=== PATIENT | female | born 1980 | race Caucasian/White ===

== ENCOUNTER 2018-03-07 09:58 | Day surgery (SDC) | END 2018-03-07 16:12 | disposition home or self-care (01) ==

== ENCOUNTER 2018-11-17 11:01 | Inpatient (IN) | payer MEDICAID ==
[~2018-11-17] VITALS: Ht 162.6 cm; Wt 102.5 kg
[2018-11-17] MEDS ORDERED: PREN-93 PO (11:13)
[2018-11-17 11:14] VITALS: BP 118/74; PULSE 81; RESP 18; Ht 162.6 cm; Wt 102.5 kg
--- NOTE | 2018-11-17 13:14 | HP ---
Date/Time of Note Date/Time of Note DATE: 11/17/18 TIME: 13:11 OB - History Hx of Present Chief Complaint: uncontrolled DM Estimated Due Date: Dec 27, 2018 : 2 Para: 0 Spontaneous : 1 Therapeutic : 0 Care: Other (late care) Obstetrical Complications: Gestational Diabetes Medical Complications: None Past Family/Social History * Past Medical, Surgical, Family and Obstetric Histories reviewed from chart. OB Admission Exam Vital Signs Vital Signs Vital Signs Date Temp Pulse Resp B/P (MAP) Pulse Ox O2 O2 Flow FiO2 Time Delivery Rate 11/17/18 97.6 81 18 118/74 Room Air 11:14 (89) Physical Exam HEENT: WNL Heart: Rhythm Normal Lungs: Clear, Equal Abdomen: WNL Extremities: Normal Reflexes: Normal Heart Rate: 120's Accelerations: Accelerations Present Decelerations: No Decelerations Varibility: Moderate Last 72 hourBlood Glucose Bedside Glucose - 72 Hours Test 11/17/18 11:29 Bedside Glucose 98 mg/dL (70-220) OB Assessment/Plan Reason for admission: other Other Assessment: uncontrolled DM Plan: Other Other plan: Admit Perinatology consult ADA diet AccuChecks Diabetic teaching MANOJ SEARS MD Nov 17, 2018 13:14
[2018-11-17] MEDS: ACCU-CHEK XX SCH ×2 (13:30→20:39)
--- NOTE | 2018-11-17 14:08 | TRIAGE ---
OB Triage Datetime Report Generated by CPN: 11/17/2018 14:08 Datetime: 11/17/2018 13:00 Labor Evaluation Frequency: 0 Monitor Mode: External Pattern: Normal: <= 5 Contractions in 10 Minutes Resting Tone [place]: Relaxed Heart Rate FHR Baseline Rate: 140 Monitor Mode: External US Variability: Moderate 6-25 bpm Accelerations: 15X15 Decelerations: None Category: Category I Datetime: 11/17/2018 11:51 Comments: U/S TECH AT BEDSIDE Datetime: 11/17/2018 11:50 Labor Evaluation Frequency: 0 Monitor Mode: External Pattern: Normal: <= 5 Contractions in 10 Minutes Resting Tone [place]: Relaxed Heart Rate FHR Baseline Rate: 140 Monitor Mode: External US Variability: Moderate 6-25 bpm Accelerations: 15X15 Decelerations: None Category: Category I Datetime: 11/17/2018 11:10 EGA: 34.2 Datetime: 11/17/2018 11:08 EGA: 27.5 Datetime: 11/17/2018 11:07 Time of Arrival: 11/17/2018 10:50 Arrived By: Ambulatory Arrived From: Dr. Goodman Chief Complaint: SENT IN [facility] FOR EFW, BPP, AND ACCUCHECK. PT JUST FOUND OUT SHE WAS 5 DAYS AGO AND IS UNSURE OF DATES Movement: Present Contractions: Denies/Absent Rupture of Membranes: Denies Vaginal Bleeding: None Vaginal Discharge: Denies Recent Sexual Intercouse: Denies Abdominal Trauma: Not Applicable Patient Complaints: None Time Provider Notified: 11/17/2018 10:50 Provider Notified: DELSHAD Initial Plan: NST, U/S, ACCUCHECK Datetime: 11/17/2018 11:06 Stage of : OB Triage Maternal Assessment Level of Consciousness: Fully Conscious DTR's/Clonus: DTRs 2+; No Clonus Headache: Denies Headache: Denies Blurred Vision: No Respiratory Effort: Unlabored; Regular Rhythm; Equal Expansion Nausea/Vomiting: Denies RUQ Epigastric Pain: Denies Facial Edema: None Temperature Route: Oral Fall Risk Assessment History of Falling: (0) No Secondary Diagnosis: (0) No Ambulatory Aid: (0) Bedrest/Nurse Assist IV Therapy: (0) No Gait: (0) Normal/Bedrest/Immobile Mental Status: (0) Oriented to Own Ability Fall Score: 0 Fall Risk Score Definition: No Risk: No action required Pain Assessment Pain Scale: 0 Pain Presence: None/Denies Pain Type: N/A
--- NOTE | 2018-11-17 17:50 | NUR ---
NUTRITION CONSULT: PATIENT , APROXIMATELY 34 WEEKS GESTATION. NO CARE RECEIVED R/T PATIENT NOT AWARE OF . HGBAIC 6.2, DIAGNOSED WITH PREDIABETES PER PATIENT. HAS RISK FACTORS FOR DIABETES, WITH BEING OBESE AND FATHER WITH DM2. PATIENT STATED FAMILIAR WITH DIET MANAGEMENT FOR DIABETES HAVING WORKED AN GLAZE WIPER. NUTRITION EDUCATION PROVIDED VERBAL AND WRITTEN. VERY MOTIVATED AND SUPPORTIVE. ANTICIPATE GOOD COMPLIANCE WITH DIET MANAGEMENT. AGREE WITH 2000 DEWEY CARB CONTROLLED DIET.
[2018-11-18] MEDS ORDERED: PRENATAL VITAMIN PO SCH (09:00)
[2018-11-18] MEDS: ACCU-CHEK XX SCH ×2 (10:48→10:55)
--- NOTE | 2018-11-18 13:31 | QN ---
Documentation Comment No complaint Afebrile VSS Strip Reactive Await Perinatology consult MANOJ SEARS MD Nov 18, 2018 13:31
--- NOTE | 2018-11-18 15:34 | PERINOTE ---
Date/Time of Note Date/Time of Note DATE: 11/18/18 TIME: 15:25 Assessment/Recommendations Other Assessments IUP 34+ weeks Newly diagnosed gestational diabetes, appears to be controllable with diet growth parameters are symmetrical, without evidence of accelerated abdominal growth. Recommendations: I would consider discharging this patient with no medication to check blood glucose fasting and postprandial. Would follow her in the perinatology clinic in 1-2 weeks, with management guided by blood glucose values. I discussed gestational diabetes and the possibility of developing non- diabetes in the future with the patient. OB Subjective Free Text/Dictaton Patient admitted for new diagnosis of gestational diabetes. Patient reports irregular menses. Had a SAB in early February,, no further menses. was not diagnosed until recently, dating is by US done on this admission. HD# 2 IUP @ 34W3D Complaints/Overnight events None Current Medications Current Medications Prenat Multivit/ Beltrami/Iron/Folic Ac () 1 tab DAILY PO Last a dministered on 11/18/18at 10:49; Admin Dose 1 TAB; Start 11/18/18 at 09:00 Diagnostic Test (Pha) (Accu-Chek) 1 ea FBSPP XX Last administered on 11/18/18at 10:55; Admin Dose 1 EA; Start 11/17/18 at 13:30 Past Medical History Medical History: no pertinent history Surgical History: no surgical history Para: 0 : 2 LMP (Females 10-50): OB Admission Exam Physical Exam Vitals: Vital Signs Date Temp Pulse Resp B/P (MAP) Pulse Ox O2 O2 Flow FiO2 Time Delivery Rate 11/17/18 97.6 81 18 118/74 Room Air 11:14 (89) HEENT: WNL Abdomen: WNL Last 72 hourBlood Glucose Bedside Glucose - 72 Hours Test 11/17/18 11:29 11/17/18 20:23 11/18/18 08:14 11/18/18 10:45 Bedside 98 113 95 104 Glucose mg/dL (70-220) mg/dL (70-220) mg/dL (70-220) mg/dL (70-220) Test 11/18/18 14:47 Bedside 130 Glucose mg/dL (70-220) Last 72 hours Lab Results CBC & BMP 11/17/18 15:26 Liver Function Test 11/17/18 15:26 Alanine Aminotransferase (ALT/SGPT) 23 Albumin 3.6 Alkaline Phosphatase 142 H Aspartate Amino Transf (AST/SGOT) 33 Direct Bilirubin 0.00 Total Protein 6.8 Hemoglobin A1C Test 11/17/18 15:26 Hemoglobin A1c 6.2 H Copies To: CC: MANOJ SEARS MD ; ROSENDO MANUEL MD Nov 18, 2018 15:34
--- NOTE | 2018-11-19 08:42 | RADRPT ---
Vent Rate: 75 bpm RR Interval: 0 msec DC Interval: 154 msec QRS Duration: 82 msec QT Interval: 378 msec QTC Interval: 422 msec P-R-T [place]: 59 - 54 - 51 degrees Normal sinus rhythm Normal ECG Electronically Signed By: Fan Connelly [id number]
--- NOTE | 2018-11-19 14:29 | DS ---
Date/Time of Note Date/Time of Note DATE: 11/19/18 TIME: 14:28 Obstetrical Discharge Record Final Diagnosis Final Diagnosis: not delivered Other Final Diagnosis Gestational DM Complications Gestational Diabetes Condition on Discharge Physical Assessment Voiding: Yes Bowel Movement: Yes Calf Tenderness: No Patient Condition: Stable MANOJ SEARS MD Nov 19, 2018 14:29
== END 2018-11-18 18:45 | disposition home or self-care (01) | DRG 833 ==
LOC: OBT 11:01 → L-D 11:06 → OBT 13:03 → PP1 15:05
PROVIDERS: ADMIT Obstetrics & Gynecology; ATTEND Obstetrics & Gynecology
PROC: 4A1HXCZ Monitoring of Products of Conception, Cardiac Rate, External Approach (ICD-10-PCS; principal; 2018-11-17)
DX: O24.410 Gestational diabetes mellitus in pregnancy, diet controlled (principal); Z3A.34 34 weeks gestation of pregnancy
CPT/HCPCS: 76815; 76818; 80053; 81003; 82962; 83036; 85025; 93005; G0463

== ENCOUNTER 2018-11-30 04:10 | Inpatient (IN) | payer MEDICAID ==
[~2018-11-30] VITALS: Ht 162.6 cm; Wt 101.6 kg
[~2018-11-30 04:10] MED LIST: PREN-93 PO
[2018-11-30 05:19] VITALS: Ht 162.6 cm; Wt 101.6 kg
[2018-11-30 05:20] VITALS: BP 117/68; RESP 18
[2018-11-30] MEDS ORDERED: LACTATED RINGER'S 1,000 ML IV PRN (05:41)
[2018-11-30] MEDS ORDERED: OXYTOCIN 30 UNITS/LR 500 ML IV PRN (06:00)
[2018-11-30] MEDS ORDERED: LIDOCAINE 1% (MPF) 30 ML INJ INJ PRN (06:00)
[2018-11-30] MEDS ORDERED: MISOPROSTOL 200 MCG TAB PR PRN (06:00)
[2018-11-30] MEDS ORDERED: METHYLERGONOVINE 0.2 MG INJ IM PRN (06:00)
[2018-11-30] MEDS ORDERED: BUTORPHANOL 2 MG INJ IV PRN (06:00)
[2018-11-30] MEDS ORDERED: IBUPROFEN 600 MG TAB PO PRN (06:00)
[2018-11-30] MEDS ORDERED: OXYTOCIN 30 UNITS/LR 500 ML IV SCH ×3 (06:00)
[2018-11-30] MEDS ORDERED: AMPICILLIN 2 GM/NS (PMX) 100 ML IV ONE (06:00)
[2018-11-30] MEDS ORDERED: BUTORPHANOL 1 MG INJ IV PRN (06:00)
[2018-11-30] MEDS ORDERED: CARBOPROST 250 MCG INJ IM PRN (06:00)
[2018-11-30] MEDS: LACTATED RINGER'S 1,000 ML IV SCH ×3 (07:00→21:41)
--- NOTE | 2018-11-30 07:10 | TRIAGE ---
OB Triage Datetime Report Generated by CPN: 11/30/2018 07:09 Datetime: 11/30/2018 06:08 Pain Assessment Pain Scale: 4 Pain Presence: Intermittent Pain Type: Cramping Pain Location: Abdomen Datetime: 11/30/2018 05:38 Stage of : OB Triage Datetime: 11/30/2018 05:33 Stage of : OB Triage Datetime: 11/30/2018 05:27 Stage of : OB Triage Datetime: 11/30/2018 05:15 Stage of : OB Triage Datetime: 11/30/2018 05:09 Stage of : OB Triage Vaginal Exam Dilatation (cms): 1.0 Exam By: ERIN, RN Datetime: 11/30/2018 05:06 Stage of : OB Triage Membrane Status: Ruptured Membranes Rupture Method: Spontaneous Amniotic Fluid Color: Clear Amniotic Fluid Amount: Small Pool: Positive Datetime: 11/30/2018 04:44 Stage of : Labor Maternal Assessment Level of Consciousness: Fully Conscious DTR's/Clonus: DTRs 2+ Headache: Denies Blurred Vision: No Respiratory Effort: Unlabored Breath Sounds, Left: Clear and Equal Breath Sounds, Right: Clear and Equal Nausea/Vomiting: Denies RUQ Epigastric Pain: Denies Facial Edema: None Interventions: Side to Side Heart Rate FHR Baseline Rate: 140 Monitor Mode: External US FHR Baseline Changes: No Baseline Change Variability: Moderate 6-25 bpm Accelerations: 10X10 Decelerations: None Pain Assessment Pain Scale: 4 Pain Presence: Intermittent Pain Type: Cramping; Dull; Ache Pain Location: Abdomen; Back Pain Goal: 2 Pain Relief Measures: Comfort Measures Membrane Status: Ruptured Membranes Rupture Method: Spontaneous Amniotic Fluid Color: Clear Amniotic Fluid Amount: Small Amniotic Fluid Odor: None Datetime: 11/18/2018 18:38 Time of Arrival: 11/30/2018 04:06 EGA: 36.1 Arrived By: Wheelchair Arrived From: Home Chief Complaint: LEAKING VAGINAL FLUID SINCE 2229 Movement: Present Contractions: Irregular Time Contractions Began: 11/30/2018 03:30 Rupture of Membranes: Ruptured Vaginal Bleeding: None Vaginal Discharge: Denies Recent Sexual Intercouse: Denies Abdominal Trauma: Not Applicable Patient Complaints: Contractions; Cramping Time Provider Notified: 11/30/2018 05:38 Provider Notified: HARMAN Initial Plan: OB ASSESSMENT, VSS, MONITOR FHR AND TOCO FOR POSSIBLE UTCS Datetime: 11/18/2018 18:34 Labor Evaluation Frequency: 0 Monitor Mode: External Resting Tone [place]: Relaxed Pain Presence: None/Denies Datetime: 11/18/2018 18:33 Comments: fetus very active, abd soft to palpation. pt denies pain or contractions. family here to take her home Datetime: 11/18/2018 18:10 Labor Evaluation Frequency: occasional Monitor Mode: External Quality: Mild Resting Tone [place]: Relaxed Contraction Comments: pt denies feeling contractions or pain Heart Rate FHR Baseline Rate: 130 Monitor Mode: External US FHR Baseline Changes: No Baseline Change Variability: Moderate 6-25 bpm Accelerations: 15X15 Decelerations: None Category: Category I Datetime: 11/18/2018 18:07 Pain Presence: None/Denies Datetime: 11/18/2018 17:46 Comments: monitoring before dschg Datetime: 11/18/2018 14:46 Bedside Blood Glucose: 130 Datetime: 11/18/2018 11:24 Labor Evaluation Frequency: 0 Monitor Mode: External Resting Tone [place]: Relaxed Heart Rate FHR Baseline Rate: 135 Monitor Mode: External US FHR Baseline Changes: No Baseline Change Variability: Moderate 6-25 bpm Accelerations: 15X15 Decelerations: None Category: Category I Datetime: 11/18/2018 10:44 Bedside Blood Glucose: 104 Datetime: 11/18/2018 08:54 Maternal Assessment Level of Consciousness: Fully Conscious DTR's/Clonus: DTRs 2+ Headache: Denies Blurred Vision: No Nausea/Vomiting: Denies RUQ Epigastric Pain: Denies Facial Edema: None Datetime: 11/18/2018 08:52 Assessment Type: Ongoing Assessment Maternal Assessment Level of Consciousness: Fully Conscious DTR's/Clonus: DTRs 2+; No Clonus Headache: Denies Blurred Vision: No Respiratory Effort: Unlabored; Regular Rhythm; Equal Expansion Breath Sounds, Left: Clear and Equal Breath Sounds, Right: Clear and Equal Nausea/Vomiting: Denies RUQ Epigastric Pain: Denies Facial Edema: None Fall Risk Assessment History of Falling: (0) No Secondary Diagnosis: (0) No Ambulatory Aid: (0) Bedrest/Nurse Assist IV Therapy: (0) No Gait: (0) Normal/Bedrest/Immobile Mental Status: (0) Oriented to Own Ability Fall Score: 0 Fall Risk Score Definition: No Risk: No action required Datetime: 11/18/2018 08:12 Bedside Blood Glucose: 95 Datetime: 11/18/2018 05:49 Maternal Assessment Level of Consciousness: Fully Conscious Headache: Denies Blurred Vision: No Temperature Route: Oral Pain Presence: None/Denies Datetime: 11/17/2018 23:32 Maternal Assessment Level of Consciousness: Fully Conscious Headache: Denies Blurred Vision: No Temperature Route: Oral Datetime: 11/17/2018 22:10 Labor Evaluation Frequency: 0 Monitor Mode: External Duration (sec)2399: denies Resting Tone [place]: Relaxed Contraction Comments: nst done. Heart Rate FHR Baseline Rate: 145 Monitor Mode: External US Variability: Moderate 6-25 bpm Accelerations: 15X15 Decelerations: None Category: Category I Comments: nst done. Pain Presence: None/Denies Datetime: 11/17/2018 21:27 Monitor Mode: External Contraction Comments: PLACED NST STARTED. Monitor Mode: External US Comments: PLACED NST STARTED. Datetime: 11/17/2018 19:32 Stage of : Antepartum Assessment Type: Ongoing Assessment Maternal Assessment Level of Consciousness: Fully Conscious DTR's/Clonus: DTRs 2+; No Clonus Headache: Denies Blurred Vision: No Respiratory Effort: Unlabored; Regular Rhythm; Equal Expansion Breath Sounds, Left: Clear and Equal Breath Sounds, Right: Clear and Equal Nausea/Vomiting: Denies RUQ Epigastric Pain: Denies Lower Extremities Edema: None Degree: None Upper Extremities Edema: None Degree: None Facial Edema: None Temperature Route: Oral Fall Risk Assessment History of Falling: (0) No Secondary Diagnosis: (0) No Ambulatory Aid: (0) Bedrest/Nurse Assist IV Therapy: (0) No Gait: (0) Normal/Bedrest/Immobile Mental Status: (0) Oriented to Own Ability Fall Score: 0 Fall Risk Score Definition: No Risk: No action required Pain Presence: None/Denies Datetime: 11/17/2018 18:36 Stage of : Antepartum Maternal Assessment Level of Consciousness: Fully Conscious Headache: Denies Nausea/Vomiting: Denies RUQ Epigastric Pain: Denies Resting Tone [place]: Relaxed Vaginal Bleeding: None Datetime: 11/17/2018 17:33 Stage of : Antepartum Maternal Assessment Level of Consciousness: Fully Conscious Headache: Denies Nausea/Vomiting: Denies RUQ Epigastric Pain: Denies Monitor Mode: Palpation Resting Tone [place]: Relaxed Comments: pt. acknowledges movement. nst q shift and done for this a.m. shift Membrane Status: Intact Vaginal Bleeding: None Datetime: 11/17/2018 16:49 Maternal Assessment Level of Consciousness: Fully Conscious Headache: Denies Blurred Vision: No Respiratory Effort: Unlabored Nausea/Vomiting: Denies RUQ Epigastric Pain: Denies Resting Tone [place]: Relaxed Pain Presence: None/Denies Datetime: 11/17/2018 11:10 EGA: 34.2 Datetime: 11/17/2018 11:08 EGA: 27.5 Datetime: 11/17/2018 11:06 Fall Score: 0 Fall Risk Score Definition: No Risk: No action required
[2018-11-30] MEDS ORDERED: DEXTROSE 5%-LR 1,000 ML IV SCH (10:30)
[2018-11-30] MEDS: AMPICILLIN 1 GM/NS (PMX) 50 ML IV SCH ×4 (12:10→22:00)
--- NOTE | 2018-11-30 16:40 | PREAC ---
Date/Time of Note Date/Time of Note DATE: 11/30/18 TIME: 16:38 Anesthesia Eval and Record Evaluation Time Pre-Procedure Interview DATE: 11/30/18 TIME: 16:38 Age 38 Sex female NPO: 8 hrs Preoperative diagnosis labor pain Planned procedure labor epidural Past Medical History Past Medical History: Includes GI: Morbid obesity Surgery & Anesthesia Issues Hx of difficult intubation Meds Anticoagulation: No Beta Carlos within 24 hr: No Reason Beta Carlos not given: Pt. not on B-Carlos Reported Medications Vit No.124/Iron/FA ( Vitamin Tablet) 1 Each Tablet, 1 EACH PO DAILY, TAB 11/17/18 Current Medications Lactated Ringer's 1,000 ml @ 125 mls/hr Q8H IV Last administered on 11/30/18at 07:00; Admin Dose 125 MLS/HR; Start 11/30/18 at 05:41 Ampicillin 50 ml @ 100 mls/hr Q4H IV Last administered on 11/30/18at 16:18; Admin Dose 100 MLS/HR; Start 11/30/18 at 10:00 Butorphanol Tartrate (Stadol) 1 mg Q2H PRN IV PAIN; Start 11/30/18 at 06:00 Butorphanol Tartrate (Stadol) 2 mg Q2H PRN IV PAIN Last administered on 11/30/18at 12:33; Admin Dose 2 MG; Start 11/30/18 at 06:00 Lidocaine (Xylocaine 1% (Mpf)) 30 ml ONCE PRN INJ EPISIOTOMY; Start 11/30/18 at 06:00 Oxytocin/Lactated Ringer's 500 ml @ 500 mls/hr ONCE POST IV ; Start 11/30/18 at 06:00 Oxytocin/Lactated Ringer's 500 ml @ 125 mls/hr POST IV ; Start 11/30/18 at 06:00 Ibuprofen (Motrin) 600 mg ONCE PRN PO PAIN LEVEL 1-5; Start 11/30/18 at 06:00 Lactated Ringer's 1,000 ml @ 2,000 mls/hr Q30M PRN IV ANESTHESIA Last ad ministered on 11/30/18at 16:16; Admin Dose 2,000 MLS/HR; Start 11/30/18 at 05:41 Oxytocin/Lactated Ringer's 500 ml @ 0 mls/hr ONCE PRN IV VAGINAL BLEEDING; Start 11/30/18 at 06:00 Methylergonovine Maleate (Methergine) 0.2 mg ONCE PRN IM VAGINAL BLEEDING; Start 11/30/18 at 06:00 Carboprost Tromethamine (Hemabate) 250 mcg ONCE PRN IM VAGINAL BLEEDING; Start 11/30/18 at 06:00 Misoprostol (Cytotec) 1,000 mcg ONCE PRN WA VAGINAL BLEEDING; Start 11/30/18 at 06:00 Oxytocin/Lactated Ringer's 500 ml @ 0 mls/hr FOR AUGMENTATION IV Last administered on 11/30/18at 10:36; Admin Dose 1 MLS/HR; Start 11/30/18 at 06:00 Dextrose/Lactated Ringer's 1,000 ml @ 125 mls/hr Q8H IV Last administered on 11/30/18at 10:36; Admin Dose 125 MLS/HR; Start 11/30/18 at 10:30 Meds reviewed: Yes Allergies Coded Allergies: No Known Allergies (Verified Allergy, Unknown, 11/17/18) Allergies Reviewed: Yes Labs/Studies Labs Reviewed: Reviewed by anesthesiologist Result Diagram: 11/30/18 0700 11/30/18 0700 Laboratory Tests 11/30/18 07:00 Blood Bank Test 11/30/18 07:00 Antibody Screen NEGATIVE Blood Type O POSITIVE Rh Immune Globulin Candidate NO test: Positive Pre-procedure Exam Last vitals Vital Signs Date Temp Pulse Resp B/P (MAP) Pulse Ox O2 O2 Flow FiO2 Time Delivery Rate 11/30/18 98.4 18 117/68 Room Air 05:20 (84) Airway: Adequate mouth opening, Adequate thyromental dist Mallampati: Mallampati III Teeth: Normal Lung: Normal Heart: Normal ASA Physical Status ASA physical status: 3 Emergency: None Planned Anesthetic Neuraxial: Epidural Planned Pain Management Epidural, Parenteral pain med, Other neuraxial med Pre-operative Attestations Prior to commencing anesthesia and surgery, the patient was re-evaluated, there was verification of: *The patient's identity *The results of appropriate recent lab work and preoperative vital signs *The above evaluation not changing prior to induction *Anesthetic plan, risk benefits, alternative and complications discussed with patient/family; questions answered; patient/family understands, accepts and wishes to proceed. MARY BETH ALCAZAR MD Nov 30, 2018 16:40
[2018-11-30] MEDS ORDERED: KETOROLAC 30 MG INJ IV PRN (17:00)
[2018-11-30] MEDS ORDERED: DIPHENHYDRAMINE 50 MG INJ IV PRN (17:00)
[2018-11-30] MEDS ORDERED: HYDROmorphONE 0.5 MG/0.5 ML SYG IV PRN ×2 (17:00)
[2018-11-30] MEDS ORDERED: NALOXONE (0.4 MG/ML) INJ IV PRN (17:00)
[2018-11-30] MEDS ORDERED: FENTAnyl 2MCG/ML-ROPIV 0.2% 100 ML BAG EPI SCH (17:00)
[2018-11-30] MEDS ORDERED: ZOLPIDEM 5 MG TAB PO PRN (17:00)
[2018-11-30] MEDS ORDERED: ONDANSETRON 4 MG INJ IV PRN (17:00)
--- NOTE | 2018-11-30 22:04 | HP ---
Date/Time of Note Date/Time of Note DATE: 11/30/18 TIME: 21:52 OB - History Hx of Present Free Text/Dictation 38y.o A1(sab) who had SAB in dec 2017 ist trimester who only discovered in the mid of october 2018 She had D&C for missed AB at 10w in dec 2017 ,was depressed without checking for even though she had no period. She had only x3 visit came in [facility] at 11/29/18 2230 no GBS status VE 1cm ruptured clear, EFM CAT I tracing uc2-4min in mod intensity admitted expectant management ,poss augmentation amicillin was initiated for unknown GBS status Estimated Due Date: Dec 27, 2018 : 2 Para: 0 Spontaneous : 1 Therapeutic : 0 Care: Limited Care Ultrasounds: Other Obstetrical Complications: Gestational Diabetes Medical Complications: None Past Family/Social History * Past Medical, Surgical, Family and Obstetric Histories reviewed from chart. Blood Type: O+ Rubella: immune RPR/VDRL: Negative GBS Status: Unknown HBsAG: Negative OB Admission Exam Vital Signs Vital Signs Vital Signs Date Temp Pulse Resp B/P (MAP) Pulse Ox O2 O2 Flow FiO2 Time Delivery Rate 11/30/18 98.4 18 117/68 Room Air 05:20 (84) Physical Exam HEENT: WNL Heart: Rhythm Normal Lungs: Clear, Equal Abdomen: WNL Extremities: Normal Reflexes: Normal Cervical Dilatation: 1cm Membranes: Ruptured Amniotic Fluid: Clear Heart Rate: 140's Accelerations: Accelerations Present Decelerations: No Decelerations Varibility: Moderate Contractions on Admission: < 5 Minutes Apart Intensity: Moderate Last 72 hourBlood Glucose Bedside Glucose - 72 Hours Test 11/30/18 08:56 11/30/18 13:28 11/30/18 17:44 Bedside Glucose 80 mg/dL (70-220) 107 mg/dL (70-220) 105 mg/dL (70-220) Last 72 hours Lab Results CBC & BMP 11/30/18 07:00 Liver Function Test 11/30/18 07:00 Alanine Aminotransferase (ALT/SGPT) 61 Albumin 3.9 Alkaline Phosphatase 194 H Aspartate Amino Transf (AST/SGOT) 57 H Direct Bilirubin 0.00 Total Protein 7.5 OB Assessment/Plan Reason for admission: rupture of membranes Other Assessment: IUP 36w1d with late entry with lat U/S Plan: Expectant Management, Other (pitocin augmentation) MANASA HAMMER MD Nov 30, 2018 22:03
--- NOTE | 2018-11-30 22:12 | LDN ---
Date/Time of Note Date/Time of Note DATE: 11/30/18 TIME: 22:08 Delivery Summary of female infant Weeks of Gestation 36w1d late entry Placenta Delivered: Spontaneously Meconium: none Episiotomy: No Perineal laceration: 1 Laceration repair: 000ch gut Estimated blood loss: 80 Sponge & Needle done & correct: Yes All needle counts correct: Yes Any foreign bodies felt in the: No Infant Delivery Information Sex Infant Sex: female Apgars 1 Minute: 8 5 Minute: 9 Suctioning Nose & mouth suctioned at raul: Yes Delee suction performed: No Umbilical Cord Umbilical cord with: 3 Vessels Cord presentations: no nuchal cord Cord Blood was obtained: Yes Mother & Baby Disposition Disposition placenta to pathology for 22hrs ruptured membrane, no clinical sg of infection Mom & Baby to Maternity; Good: Yes Mom transferred to: Other Baby to NICU: No () MANASA HAMMER MD Nov 30, 2018 22:12
[2018-11-30 23:40] VITALS: BP 100/58; PULSE 79; RESP 18
[2018-12-01] MEDS ORDERED: ZOLPIDEM 5 MG TAB PO PRN (00:30)
[2018-12-01] MEDS ORDERED: CARBOPROST 250 MCG INJ IM PRN (00:30)
[2018-12-01] MEDS ORDERED: BENZOCAINE 20% 56 ML SPRAY TOP PRN (00:30)
[2018-12-01] MEDS ORDERED: OXYTOCIN 30 UNITS/LR 500 ML IV PRN (00:30)
[2018-12-01] MEDS ORDERED: METHYLERGONOVINE 0.2 MG INJ IM PRN (00:30)
[2018-12-01] MEDS ORDERED: LANOLIN HPA 1 PKT TOP PRN (00:30)
[2018-12-01] MEDS ORDERED: OXYCODONE/ASPIRIN (4.88/325) TAB PO PRN ×2 (00:30)
[2018-12-01] MEDS ORDERED: MISOPROSTOL 200 MCG TAB PR PRN (00:30)
[2018-12-01] MEDS ORDERED: WITCH HAZEL/GLYCERIN PAD PR PRN (00:30)
[2018-12-01 04:10] VITALS: BP 110/55; PULSE 73; RESP 18
[2018-12-01 08:00] VITALS: BP 102/56; PULSE 75; RESP 17
[2018-12-01] MEDS: SENNA/DOCUSATE NA (8.6MG/50MG) TAB PO SCH ×2 (09:12→22:03)
[2018-12-01] MEDS: IBUPROFEN 600 MG TAB PO SCH ×3 (11:47→23:14)
[2018-12-01] MEDS ORDERED: INFLUENZA VIRUS VACCINE 0.5 ML (DISPENSING) IM* ONE (13:30)
[2018-12-01 15:30] VITALS: BP 91/51; PULSE 81; RESP 17
--- NOTE | 2018-12-01 17:28 | QN ---
Documentation Comment vss afebrile fundus firm lochia min calf neg A s/p PTB? PPROM?( late care) P discharge home in am MANASA HAMMER MD Dec 01, 2018 17:28
[2018-12-01 20:20] VITALS: BP 98/56; PULSE 65; RESP 18
[2018-12-02 04:00] VITALS: BP 96/54; PULSE 67; RESP 18
[2018-12-02] MEDS: IBUPROFEN 600 MG TAB PO SCH ×3 (05:38→17:23)
[2018-12-02 08:00] VITALS: BP 100/56; PULSE 70; RESP 18
[2018-12-02] MEDS ORDERED: DIPHTH/TET/ACEL PERTUSS (ADULT) 0.5 ML VIAL IM* ONE (09:00)
[2018-12-02] MEDS: SENNA/DOCUSATE NA (8.6MG/50MG) TAB PO SCH ×2 (09:30→21:23)
--- NOTE | 2018-12-02 13:15 | PN ---
Date/Time of Note Date/Time of Note DATE: 12/02/18 TIME: 13:13 OB Subjective Subjective Subjective Breast-feeding. Reports vaginal bleeding decreased. Denies any cramping. Had bowel movement. Urinated. Ambulating without any symptoms. Denies any dizziness or lightheadedness. Denies any depressive symptoms. OB Objective Objective Objective GA: A&O, NAD Abdomen: Soft, fundus palpable and firm and below the umbilicus and nontender Extremities: No calf tenderness, no click no edema Breast: No evidence of mastitis or fissure VS - Last 72 Hours, by Label Date Temp Pulse Resp B/P (MAP) Pulse Ox O2 O2 Flow FiO2 Time Delivery Rate 12/02/18 98.2 70 18 100/56 Room Air 08:00 (71) 12/02/18 98.1 67 18 96/54 (68) 04:00 12/01/18 97.4 65 18 98/56 (70) Room Air 20:20 12/01/18 98.1 81 17 91/51 (64) Room Air 15:30 12/01/18 98.0 75 17 102/56 Room Air 08:00 (71) 12/01/18 98.1 73 18 110/55 98 Room Air 04:10 (73) 11/30/18 97.9 79 18 100/58 98 Room Air 23:40 (72) 11/30/18 98.4 18 117/68 Room Air 05:20 (84) CBC & BMP 11/30/18 07:00 12/01/18 06:45 Liver Function Test 11/30/18 07:00 12/01/18 06:45 Alanine Aminotransferase (ALT/SGPT) 61 53 Albumin 3.9 2.8 #L Alkaline Phosphatase 194 H 128 H Aspartate Amino Transf (AST/SGOT) 57 H 42 Direct Bilirubin 0.00 0.00 Total Protein 7.5 5.8 #L OB Assessment/Plan Other Assessment: Status post PPROM GDM A1, diet controlled Doing well day #2 Mild anemia, , asymptomatic Stable for discharge home today Discharge instruction provided. Advised patient to take iron twice a day with stool softener and follow-up with primary OB office within 6 weeks or sooner as needed PROSPER CARBAJAL MD Dec 02, 2018 13:15
--- NOTE | 2018-12-02 13:24 | PD.PPDC ---
CORD CUTTER Discharge Instruction Provider Information Physician Information Prosper Downey MD Diagnosis [id number] Final Diagnosis: Pcenp0f S/p , PPROM Condition [id number] Patient Condition: Whwyj0n Good Diet [id number] Diet: Fomvj9v Resume Regular Diet Activity/Restrictions [id number] Activity: Wmakp6g Normal Activity [id number] Restrictions: Ccjxx1g No Exercising Minimize Walking Minimize Stair-climbing No Sexual Activity Nothing in the Vagina No [place] No Tampons, douche Wound/Drain Care Instructions [id number] Wound/Drain Care Instructions: Tapse5t Keep clean and dry Follow-up Follow-up with Physician: 6, Week/Weeks Provider Information: Prosper Carbajal MD Return to clinic for [id number] [employer] Instructions: Ljgfk9h Fever greater than 101 Chills Worsening abdominal pain Excessive Vaginal Bleeding More than 2 pads per hour Unable to tolerate diet [id number] OB Instructions: Sbwhd6h Breast Tenderness Depression Blurried Vision Headache PROSPER CARBAJAL MD Dec 02, 2018 13:24
--- NOTE | 2018-12-02 13:24 | DS ---
Date/Time of Note Date/Time of Note DATE: 12/02/18 TIME: 13:24 Discharge Summary Admission/Discharge Info Admit Date/Time Nov 30, 2018 at 05:38 Discharge Date/Time Discharge Diagnosis PTL Poor care Patient Condition: Good Consults N/a Hx of Present Illness 38y.o A1(sab) wih IUP at 36 + weeks and poor care presented in labor. VE 1cm ruptured clear, EFM CAT I tracing uc2-4min in mod intensity admitted expectant management underwent augmentation.. She delivered a viable female fetus at 36 +weeks and Aprgar 8 and 9 without any complication course was also uncomplicated. She was breast-feeding. Vaginal bleeding decreased. Her vitals were stable during hospitalization. On day #2 patient noted stable enough to be discharged. She was ambulating breast-feeding, vitals were stable. Discharged home in stable condition advised to have a follow-up at 6 weeks with her primary OB office Hospital Course Unremarkable Home Meds Reported Medications Vit No.124/Iron/FA ( Vitamin Tablet) 1 Each Tablet, 1 EACH PO DAILY, TAB 11/17/18 Primary Care Provider Not On Staff Doctor Time spent on discharge: > 30 minutes PROSPER CARBAJAL MD Dec 02, 2018 13:24
[2018-12-02 16:23] VITALS: BP 124/79; PULSE 74; RESP 18
[2018-12-02 19:50] VITALS: BP 105/61; PULSE 71; RESP 17
== END 2018-12-02 22:00 | disposition home or self-care (01) | DRG 807 ==
LOC: OBT 04:10 → L-D 04:15 → OBT 05:38 → L-D 05:38 → PP1 23:31
PROVIDERS: ADMIT Obstetrics & Gynecology; ATTEND Obstetrics & Gynecology
PROC: 10E0XZZ Delivery of Products of Conception, External Approach (ICD-10-PCS; principal; 2018-11-30)
PROC: 0HQ9XZZ Repair Perineum Skin, External Approach (ICD-10-PCS; 2018-11-30)
DX: O42.013 Preterm premature rupture of membranes, onset of labor within 24 hours of rupture, third trimester (principal); Z37.0 Single live birth; O24.420 Gestational diabetes mellitus in childbirth, diet controlled; O99.214 Obesity complicating childbirth; E66.01 Morbid (severe) obesity due to excess calories; O70.9 Perineal laceration during delivery, unspecified; O90.81 Anemia of the puerperium; D64.9 Anemia, unspecified; Z3A.36 36 weeks gestation of pregnancy; Z23 Encounter for immunization
CPT/HCPCS: 62319; 76815; 80053; 80307; 81003; 82947; 82962; 84560; 85025; 85610; 85730; 86592; 86703; 86762; 86850; 86900; 86901; 87340; 88307; 90686; 90715; 99464; G0463; J0290; J0595; J2590; J3010; J7120; J7121

== ENCOUNTER 2019-07-14 20:25 | Observation (INO) | payer BC, MEDICAID ==
[~2019-07-14] VITALS: Ht 162.6 cm; Wt 99.3 kg
[~2019-07-14 20:25] MED LIST changes: +DOCU-144 PO; +METO10TA92 PO; +ONDA4TAB14 PO; +PANT40TA4 PO; +POLY17PO6 PO
[2019-07-14] MEDS ORDERED: ONDANSETRON 4 MG INJ IV ONE (20:49)
[2019-07-14] MEDS ORDERED: ONDANSETRON 4 MG INJ ONE (20:51)
[2019-07-14] MEDS ORDERED: ONDANSETRON 4 MG INJ IV STA ×2 (20:54→22:21)
[2019-07-14] MEDS ORDERED: HYDROmorphONE 1 MG/ML SYG IV STA (20:54)
[2019-07-14] MEDS ORDERED: SOD CHLORIDE 0.9% 1,000 ML IV STA ×2 (20:54→23:04)
[2019-07-14] MEDS ORDERED: FENTAnyl 50 MCG/ML VIAL IV ONE (22:00)
[2019-07-14] MEDS ORDERED: KETAMINE HCL (50 MG/ML) 1ml syringe IV STA (22:21)
[2019-07-14] MEDS ORDERED: METOCLOPRAMIDE 10 MG INJ IV STA (23:04)
[2019-07-14] MEDS ORDERED: FAMOTIDINE 20 MG TAB PO STA (23:04)
[2019-07-14] MEDS ORDERED: METOCLOPRAMIDE 10 MG INJ IV ONE (23:30)
[2019-07-15] MEDS ORDERED: KETOROLAC 30 MG INJ IV ONE (00:44)
[2019-07-15] MEDS ORDERED: HYOSCYAMINE 0.125 MG SUBL TAB PO ONE (01:00)
[2019-07-15] MEDS ORDERED: ACETAMINOPHEN 325 MG TAB PO PRN (01:00)
[2019-07-15] MEDS ORDERED: NACL 0.9% 3 ML SYG IV SCH (01:00)
[2019-07-15] MEDS ORDERED: DOCUSATE SODIUM 100 MG CAP PO PRN (01:00)
[2019-07-15] MEDS ORDERED: METOCLOPRAMIDE 10 MG INJ IV PRN (01:00)
[2019-07-15] MEDS ORDERED: BISACODYL (EC) 5 MG TAB PO PRN (01:00)
[2019-07-15] MEDS ORDERED: ONDANSETRON 4 MG INJ IV PRN ×2 (01:00)
[2019-07-15] MEDS: CEFTRIAXONE 1 GM/50 ML (PMX) 50 ML IVPB SCH (01:47)
[2019-07-15] MEDS: SOD CHLORIDE 0.9% 1,000 ML IV SCH ×3 (02:00→19:35)
[2019-07-15 02:35] VITALS: Ht 162.6 cm; Wt 99.3 kg
[2019-07-15 02:48] VITALS: BP 113/60; PULSE 70; RESP 17
[2019-07-15] MEDS: KETOROLAC 30 MG INJ IV PRN ×2 (03:03→12:20)
[2019-07-15] MEDS: POTASSIUM CHLORIDE 100 ML IVPB SCH ×2 (04:27→06:33)
[2019-07-15] MEDS ORDERED: PANTOPRAZOLE 40 MG INJ IV SCH (06:00)
[2019-07-15 08:08] VITALS: BP 99/56; PULSE 66; RESP 16
[2019-07-15] MEDS: ACETAMINOPHEN 325 MG TAB PO PRN ×2 (08:46→16:15)
[2019-07-15] MEDS ORDERED: PANTOPRAZOLE (EC) 40 MG TAB PO ONE (09:30)
[2019-07-15] MEDS: PRENATAL VITAMIN PO SCH (12:07)
[2019-07-15] MEDS ORDERED: PHENAZOPYRIDINE 100 MG TAB PO SCH (13:00)
[2019-07-15 14:44] VITALS: BP 103/53; PULSE 65; RESP 18
[2019-07-15 20:01] VITALS: BP 123/63; PULSE 63; RESP 18
[2019-07-16] MEDS: CEFTRIAXONE 1 GM/50 ML (PMX) 50 ML IVPB SCH (01:24)
[2019-07-16] MEDS: SOD CHLORIDE 0.9% 1,000 ML IV SCH ×4 (01:27→20:01)
[2019-07-16 02:06] VITALS: BP 129/64; PULSE 65; RESP 18
[2019-07-16] MEDS: PANTOPRAZOLE (EC) 40 MG TAB PO SCH (05:48)
[2019-07-16] MEDS: ACETAMINOPHEN 325 MG TAB PO PRN ×2 (05:50→15:42)
[2019-07-16] MEDS: PRENATAL VITAMIN PO SCH (08:09)
[2019-07-16 08:46] VITALS: BP 107/62; PULSE 63; RESP 17
[2019-07-16] MEDS: DOCUSATE SODIUM 100 MG CAP PO SCH (14:29)
[2019-07-16 16:49] VITALS: BP 115/70; PULSE 62; RESP 18
[2019-07-16] MEDS: KETOROLAC 30 MG INJ IV PRN (19:06)
[2019-07-16 20:00] VITALS: BP 120/61; PULSE 72; RESP 19
[2019-07-17] MEDS: DOCUSATE SODIUM 100 MG CAP PO SCH ×2 (00:50→12:18)
[2019-07-17] MEDS: CEFTRIAXONE 1 GM/50 ML (PMX) 50 ML IVPB SCH (00:50)
[2019-07-17] MEDS: SOD CHLORIDE 0.9% 1,000 ML IV SCH ×2 (01:49→09:16)
[2019-07-17] MEDS: ACETAMINOPHEN 325 MG TAB PO PRN (05:54)
[2019-07-17] MEDS: PANTOPRAZOLE (EC) 40 MG TAB PO SCH (05:54)
[2019-07-17 08:03] VITALS: BP 111/66; PULSE 61; RESP 16
[2019-07-17] MEDS: PRENATAL VITAMIN PO SCH (08:22)
[2019-07-17] MEDS ORDERED: POLYETHYLENE GLYCOL 17 GM PACKET PO SCH (09:30)
[2019-07-17 14:14] VITALS: BP 112/70; PULSE 75; RESP 16
[2019-07-17] MEDS ORDERED: PANTOPRAZOLE (EC) 40 MG TAB PO SCH (18:00)
== END 2019-07-17 16:01 | disposition home or self-care (01) ==
LOC: E/R 20:25 → TEL 07-15 00:33 → PP2 07-15 02:06
PROVIDERS: ADMIT Family Medicine; ATTEND Family Medicine
DX: K80.20 Calculus of gallbladder without cholecystitis without obstruction (principal); N39.0 Urinary tract infection, site not specified; E78.1 Pure hyperglyceridemia; E66.01 Morbid (severe) obesity due to excess calories; Z68.37 Body mass index [BMI] 37.0-37.9, adult; E11.9 Type 2 diabetes mellitus without complications
CPT/HCPCS: 36415; 74176; 74185; 76705; 78226; 80053; 80061; 81001; 81025; 83036; 83690; 83735; 84443; 84703; 85025; 87086; 96374; 96375; 96376; 99285; A9537; C9113; J0696; J1170; J1885; J2405; J2765; J3010; J3480; J7030; Z7500; Z7610; 81003; 99217; G0378; J7999